=== PATIENT | male | born 1980 | race Caucasian/White ===

== ENCOUNTER 2022-02-15 20:54 | Emergency (ER) | payer OTHER ==
[2022-02-15] MEDS ORDERED: CEPHALEXIN500 M1 PO (22:58)
== END 2022-02-15 23:05 | disposition home or self-care (01) ==
LOC: ER1 20:54
DX: N34.1 Nonspecific urethritis (principal); F17.200 Nicotine dependence, unspecified, uncomplicated
CPT/HCPCS: 81001; 87077; 87086; 87186; 96372; 99284; J0696

== ENCOUNTER 2022-07-31 09:11 | Emergency (ER) | payer OTHER ==
[~2022-07-31 09:11] MED LIST: CEPHALEXIN500 M1 PO
== END 2022-07-31 10:30 | disposition left against medical advice (07) ==
LOC: ER1 09:11
DX: Z53.21 Procedure and treatment not carried out due to patient leaving prior to being seen by health care provider (principal)